=== PATIENT | male | born 1960 | race Caucasian/White ===

== ENCOUNTER 2016-08-14 | Emergency (ER) | payer BC ==
[~2016-08-14] MED LIST: BISOPROLOL HCTZ PO; LIPITOR20 MG PO; LISINOPRIL10 MG PO; NIASPAN1000 MG PO
[2016-08-14] MEDS ORDERED: TESTOSTERO200 MG/1 M IM (16:06)
[2016-08-14] MEDS ORDERED: ATORVASTATIN CA10 M1 PO (16:07)
[2016-08-14] MEDS ORDERED: NABUMETONE750 M1 PO (16:07)
[2016-08-14] MEDS ORDERED: LISINOPRIL-HCT1 EAC1 PO (16:09)
[2016-08-14] MEDS ORDERED: NEURONTIN600 M1 PO (16:09)
[2016-08-14] MEDS ORDERED: TYLENOL EXTRA500 M1 PO (17:38)
[2016-08-14] MEDS ORDERED: VALIUM5 M1 PO (20:18)
== END 2016-08-14 20:34 ==
DX: R07.89 Other chest pain (principal); I10 Essential (primary) hypertension; E78.5 Hyperlipidemia, unspecified; G47.33 Obstructive sleep apnea (adult) (pediatric); Z79.899 Other long term (current) drug therapy